=== PATIENT | male | born 1975 | race American Indian/Alaskan Native ===

== ENCOUNTER 2016-08-26 07:44 | Day surgery (SDC) | payer OTHER ==
--- NOTE | 2016-08-26 08:41 | Anesthesia Day of Surgery ---
Anesthesia Day of Surgery - Day of Surgery Patient Examined: Yes Patient H&P Reviewed: Yes Patient is NPO: Yes
--- NOTE | 2016-08-26 08:41 | Anesthesia Consultation ---
Anesthesia Consult and Med Hx Date of service: 08/26/16 - Airway Anesthetic Teeth Evaluation: Good ROM Head & Neck: Adequate Mental/Hyoid Distance: Adequate Mallampati Class: Class II Intubation Access Assessment: Probably Good - Pulmonary Exam CTA: Yes - Cardiac Exam Cardiac Exam: RRR - Pre-Operative Health Status ASA Pre-Surgery Classification: ASA2 Proposed Anesthetic Plan: MAC - Pre-Anesthesia Comment Pre-Anesthesia Comments: Back injury in [place]. Pt has TENS. - Pulmonary Hx Smoking: No (VAPES)
[2016-08-26] MEDS: DILAUDID IV PRN ×4 (08:53→10:21)
[2016-08-26] MEDS ORDERED: NACL 0.9% 1000 ML 1,000 ML IV SCH (09:00)
[2016-08-26] MEDS ORDERED: DIPRIVAN 10 MG/ML IV ONE ×2 (09:30)
--- NOTE | 2016-08-26 09:46 | Progress Note ---
Assessment and Plan - Patient Problems (1) Epigastric abdominal pain Current Visit: Yes Status: Acute Plan to address problem: Will discuss CT scan, UGI/SBF with patient. (2) Gastroparesis Current Visit: Yes Status: Acute Plan to address problem: Will discuss CT scan, UGI/SBF with patient. Subjective Date of service: 08/26/16 Principal diagnosis: Epigastric abdominal pain Interval history: 41 year old with ongoing epigastric abdominal pain, not responding to pantoprazole plus a second medication from his primary MD. He had received a dose of Dilaudid this morning prior to my arrival. Objective - Constitutional Vitals: Vital Signs - 12hr 08/26/16 08/26/16 09:00 09:05 Temperature 97.8 F 97.8 F Pulse Rate 65 65 Respiratory 12 12 Rate Blood Pressure 126/74 126/74 O2 Sat by Pulse 98 98 Oximetry General appearance: Present: no acute distress ((had received Dilaudid)) - EENT Eyes: PERRL, EOM intact, no scleral icterus ENT: hearing intact - Neck Neck: supple - Respiratory Respiratory effort: normal Respiratory: bilateral: CTA - Cardiovascular Rhythm: regular Heart Sounds: Present: S1 & S2 - Gastrointestinal General gastrointestinal: Present: soft, non-tender, non-distended, normal bowel sounds, other (rounded, mildly obese). 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 Retained gastric content, no other obvious abnormalities.)
--- NOTE | 2016-08-26 09:52 | Short Stay Summary ---
Short Stay Documentation Date of service: 08/26/16 Narrative H&P: 41 year old with ongoing epigastric abdominal pain not responsive to pantoprazole plus a second medication prescribed by his primary MD. He had received a dose of Dilaudid in pre-op prior to my arrival to see him this morning. - History H&P: obtained from office Past Medical History: other (traumatic brain injury, anxiety, depression, migraine) Past Surgical History: Other (hernia repair) Social history: other (fiancee) - Allergies and Medications Current Medications: Allergies No Known Allergies Allergy (Verified 08/26/16 08:40) Home Medications Medication Instructions Recorded Confirmed Last Taken Type Dicyclomine 20 mg PO QID 08/26/16 08/26/16 08/25/[address] 1,000 mg PO DAILY 08/26/16 08/26/16 08/25/16 History Pantoprazole 40 mg PO BID 08/26/16 08/26/16 08/25/16 History RisperDAL 1 mg PO BID 08/26/16 08/26/16 08/25/16 History Sucralfate 1 gm PO QID 08/26/16 08/26/16 08/25/16 History Active Medications Hydromorphone HCl (Dilaudid) 0.5 mg IV Q10MIN PRN PRN Reason: Pain , Severe (7-10) in PACU Stop: 08/26/16 12:00 Last Admin: 08/26/16 09:14 Dose: 0.5 mg Sodium Chloride (Nacl 0.9% 1000 Ml) 1,000 mls @ 50 mls/hr IV DIRECT ASA Last Admin: 08/26/16 08:46 Dose: 50 mls/hr - Physical exam General appearance: no acute distress ((had received Dilaudid)), well-nourished Integumentary: no rash HEENT: PERRLA, EOMI Lungs: Clear to auscultation Heart: Regular rate, Normal S1, Normal S2 Gastrointestinal: normal (soft, nontender, nondistended, nontympanic, rounded, mildly obese), no tenderness, no distended, no organomegaly, no hepatomegaly, no splenomegaly, no abdominal bruit, obese, no pulsatile mass, no pulsatile liver Neurological: Other (memory deficits - per patient due to traumatic brain injury ) - Hospital course Hospital course: Uneventful EGD, retained gastric content, see report. - Disposition Condition at discharge: Good Disposition: DC-01 TO HOME OR SELFCARE - Discharge Diagnoses (1) Epigastric abdominal pain Status: Chronic Comment: Will discuss obtaining CT, UGI/SBF. (2) Gastroparesis Status: Chronic Comment: Will discuss obtaining CT, UGI/SBF. Short Stay Discharge Plan Activity: other (no driving today) Diet: regular, low fat Additional Instructions: Patient to call to schedule CT, UGI/SBF. Follow up with: BHUPINDER AVILA MD [Primary Care Provider] - 7 Days
--- NOTE | 2016-08-26 10:04 | Operative Report ---
Operative Report Operative Report: Date: 08/26/2016 Procedure: Esophagogastroduodenoscopy Endoscopist: Antwon Feliz M.D. Preprocedure diagnosis: Epigastric abdominal pain Postprocedure diagnosis: Retained gastric content consistent with gastroparesis Medication: Monitored anesthesia care Complication: None Estimated blood loss: None Procedure: See the endoscopy lab outpatient record for details regarding history , physical, medications, allergies etc. The indications, techniques, potential complications and alternatives, had been discussed in detail with the patient prior to the day of exam, were reviewed again with him on the day of the exam. His questions were encouraged and answered, and he granted consent for this procedure. He was sedated by anesthesia services. The tip of a [employer] video panendoscope was passed easily through the pharynx and into the esophagus which appeared normal throughout its entire length. The instrument was advanced into the stomach and air was insufflated. There was a small but significant amount of semisolid retained content in the fundus. The visible mucosa appeared normal. The instrument was cautiously advanced further into the stomach was minimal air insufflation. All visible gastric mucosa was intact. The pylorus was patent. A a small amount of retained content was noted to be refluxing into the stomach from the duodenum. No pathology was seen in the duodenal bulb or upper portion of the second portion of the duodenum. The instrument was retroflexed revealing no pathology involving the lesser curvature, cardia, or visible portions of fundus. The endoscope was straightened and withdrawn. The procedure was very well-tolerated. Postprocedure he was observed in the recovery area of the GI lab to ensure stability prior to his release. See the outpatient record for details regarding instructions to patient, medications and plans for follow-up. Endoscopic assessment: 1. Retained gastric content with patent pylorus consistent with gastroparesis, cannot rule out more distal obstructive process. 2. Otherwise grossly normal upper endoscopy. Antwon Feliz M.D. Dictated 08/26/2016 at 9:58 AM
--- NOTE | 2016-08-26 10:23 | Post Anesthesia Evaluation ---
- Post Anesthesia Evaluation Patient Participated: Yes Airway Patent: Yes Stable Respiratory Function: Yes Temp > 96.8F: Yes Pain Manageable: Yes Adequeate Hydration: Yes Anesthesia Complications: No Block Receding Appropriately: Not Applicable
[2016-08-26 10:45] VITALS: BP 142/82
== END 2016-08-26 07:45 | disposition home or self-care (01) ==
LOC: GIO 07:44
PROVIDERS: ATTEND Internal Medicine Gastroenterology
DX: K31.84 Gastroparesis (principal); K56.60 Unspecified intestinal obstruction; K21.9 Gastro-esophageal reflux disease without esophagitis; F41.9 Anxiety disorder, unspecified; F32.9 Major depressive disorder, single episode, unspecified; G43.909 Migraine, unspecified, not intractable, without status migrainosus; Z98.890 Other specified postprocedural states; Z79.899 Other long term (current) drug therapy
CPT/HCPCS: 43235; 96374; 96375; J1170; J2704; J7030

== ENCOUNTER 2016-09-04 08:56 | Outpatient (CLI) | payer OTHER ==
--- NOTE | 2016-09-04 14:26 | Fluoroscopy Report ---
UGI AND SMALL BOWEL FOLLOW THROUGH INDICATION: Epigastric, RUQ pain, vomiting. Gallstones found last week on ultrasound. COMPARISON: None similar at this institution. FINDINGS: Upper GI and small bowel follow-through performed. Patient swallowed thick and thin barium without any difficulty and tolerated effervescent granules well. Building Coordinator radiograph demonstrates nonobstructive bowel gas pattern. Ascending colon stool. Femoral head spurring/bony prominence along the articular surfaces laterally noted with increased propensity for femoral acetabular impingement not entirely excluded. Esophagus is normal in course and caliber. Normal peristalsis and mucosal pattern. Mild gastroesophageal reflux noted extending up to mid esophagus as on image 9. No significant hiatal hernia. Normal gastric contours without evidence of peptic ulcer disease. Normal duodenal bulb and appearance of the C-loop as well. Serial overhead abdominal radiographs suggest a small bowel transient time of approximately 2 hour and 15 minutes. Spot radiographs demonstrate no suspicious filling defect, mass, angulation or tethering. Normal terminal ileum. Opacified appendix incidentally noted. CONCLUSION: Mild gastroesophageal reflux; otherwise unremarkable upper GI and small bowel follow-through, as described. Thank you for the opportunity to participate in this patient's care.
== END 2016-09-04 08:57 | disposition home or self-care (01) ==
LOC: FLUORO 08:56
PROVIDERS: ATTEND Internal Medicine Gastroenterology
DX: K31.84 Gastroparesis (principal); K76.9 Liver disease, unspecified; K21.9 Gastro-esophageal reflux disease without esophagitis; K80.20 Calculus of gallbladder without cholecystitis without obstruction; Z87.891 Personal history of nicotine dependence
CPT/HCPCS: 74249

== ENCOUNTER 2016-11-29 11:58 | Day surgery (SDC) | payer OTHER ==
[~2016-11-29 11:58] MED LIST: ANCEF/STERILE WATER 2 GM/20 ML IV NR; HEPARIN SUB-Q NR; NACL 0.9% 1000 ML 1,000 ML IV SCH; PEPCID PO NR
[2016-11-29] MEDS ORDERED: DIPRIVAN 10 MG/ML IV ONE (12:22)
[2016-11-29] MEDS ORDERED: SUBLIMAZE ONE (12:22)
[2016-11-29] MEDS ORDERED: XYLOCAINE MPF 2% ONE (12:23)
[2016-11-29] MEDS ORDERED: ZEMURON IV ONE (12:23)
[2016-11-29] MEDS: VERSED IV NR ×2 (12:56→13:03)
--- NOTE | 2016-11-29 13:49 | Anesthesia Consultation ---
Anesthesia Consult and Med Hx Date of service: 11/29/16 - Airway Anesthetic Teeth Evaluation: Good ROM Head & Neck: Adequate Mental/Hyoid Distance: Adequate Mallampati Class: Class II Intubation Access Assessment: Probably Good - Pulmonary Exam CTA: Yes - Cardiac Exam Cardiac Exam: RRR - Pre-Operative Health Status ASA Pre-Surgery Classification: ASA2 Proposed Anesthetic Plan: General - Pulmonary Hx Smoking: Yes (stop 2 years ago, SMOKES VAPE NOW) - Cardiovascular System Hx Hypertension: No - Central Nervous System Hx Back Pain: Yes Hx Psychiatric Problems: Yes - Gastrointestinal Hx Gastroesophageal Reflux Disease: Yes - Endocrine Hx Renal Disease: No Hx Non-Insulin Dependent Diabetes: No Hx Hypothyroidism: No - Other Systems Hx Alcohol Use: No Hx Substance Use: No Hx Cancer: No Hx Obesity: Yes
--- NOTE | 2016-11-29 13:49 | Anesthesia Day of Surgery ---
Anesthesia Day of Surgery - Day of Surgery Patient Examined: Yes Patient H&P Reviewed: Yes Patient is NPO: Yes
[2016-11-29] MEDS ORDERED: VERSED ONE (13:59)
[2016-11-29] MEDS ORDERED: MARCAINE 0.25% INFILTRATI ONE (14:00)
[2016-11-29] MEDS ORDERED: DILAUDID ONE (14:15)
[2016-11-29] MEDS ORDERED: NACL 0.9% 1000 ML 1,000 ML ONE (14:19)
[2016-11-29] MEDS ORDERED: NACL 0.9% 1000 ML IV ONE (14:20)
[2016-11-29] MEDS ORDERED: MARCAINE 0.5% INFILTRATI ONE (14:20)
[2016-11-29] MEDS ORDERED: NACL 0.9% IR ONE ×2 (14:20)
[2016-11-29] MEDS ORDERED: OMNIPAQUE 300 MG/50 ML (CATH LAB) IV ONE (14:20)
[2016-11-29] MEDS ORDERED: BREVIBLOC IV ONE (14:28)
[2016-11-29] MEDS ORDERED: DECADRON ONE ×2 (14:32)
[2016-11-29] MEDS ORDERED: NEOSTIGMINE ONE (15:29)
[2016-11-29] MEDS ORDERED: ROBINUL ONE ×2 (15:29)
[2016-11-29] MEDS ORDERED: TORADOL ONE (15:30)
--- NOTE | 2016-11-29 15:40 | Short Stay Summary ---
Short Stay Documentation Date of service: 11/29/16 - History H&P: obtained from office - Allergies and Medications Current Medications: Allergies No Known Allergies Allergy (Verified 11/22/16 15:29) Home Medications Medication Instructions Recorded Confirmed Last Taken Type Dicyclomine 20 mg PO QID 08/26/16 11/22/16 11/26/[address] 1,000 mg PO DAILY 08/26/16 11/22/16 11/26/16 History Pantoprazole 40 mg PO BID 08/26/16 11/22/16 11/26/16 History RisperDAL 1 mg PO BID 08/26/16 11/22/16 11/26/16 History Sucralfate 1 gm PO QID 08/26/16 11/22/16 11/26/16 History Morphine [Morphine TAB] 15 mg PO PRN PRN 11/22/16 11/22/16 Unknown History Active Medications Cefazolin Sodium (Ancef/Sterile Water 2 Gm/20 Ml) 2 gm IV PREOP NR Stop: 11/29/16 23:59 Famotidine (Pepcid) 20 mg PO PREOP NR Stop: 11/29/16 23:59 Last Admin: 11/29/16 12:48 Dose: 20 mg Heparin Sodium (Porcine) (Heparin) 5,000 unit SUB-Q PREOP NR Stop: 11/29/16 23:59 Last Admin: 11/29/16 12:59 Dose: 5,000 unit Sodium Chloride (Nacl 0.9% 1000 Ml) 1,000 mls @ 75 mls/hr IV DIRECT ASA Last Admin: 11/29/16 12:55 Dose: 75 mls/hr Midazolam HCl (Versed) 2 mg IV PREOP NR Stop: 11/29/16 23:59 Last Admin: 11/29/16 13:03 Dose: 2 mg - Brief post op/procedure progress note Date of procedure: 11/29/16 Pre-op diagnosis: Biliary colic Post-op diagnosis: other (Chronic cholecystitis) Procedure: Laparoscopic cholecystectomy Anesthesia: GETA, local Surgeon: FABIAN CARLOS Clerical Manager: SANTOS VALERA Estimated blood loss: 50-100ml Pathology: list (Gallbladder) Specimen disposition: to lab Condition: stable - Disposition Condition at discharge: Good Disposition: DC- TO HOME OR SELFCARE Short Stay Discharge Plan Activity: no restrictions Diet: regular Wound: remove dressing (12/01/16, and then may shower) Follow up with: FABIAN CARLOS MD [Staff Physician] - 7 Days Prescriptions: oxyCODONE /ACETAMINOPHEN [Percocet 5/325] 1 - 2 tab PO Q4HR PRN #30 tab PRN Reason: Pain Promethazine [Phenergan TAB] 25 mg PO Q6HR PRN #10 tab PRN Reason: Nausea
[2016-11-29] MEDS ORDERED: PERCOCET 5/325 PO PRN (15:56)
[2016-11-29] MEDS ORDERED: DILAUDID IV PRN (16:00)
[2016-11-29] MEDS: DILAUDID IV PRN ×2 (16:10→16:40)
[2016-11-29] MEDS ORDERED: DEMEROL ONE (16:10)
[2016-11-29] MEDS ORDERED: DEMEROL IV PRN (16:12)
--- NOTE | 2016-11-29 16:34 | Post Anesthesia Evaluation ---
- Post Anesthesia Evaluation Patient Participated: Yes Airway Patent: Yes Stable Respiratory Function: Yes Nausea/Vomiting: No Temp > 96.8F: Yes Pain Manageable: Yes Adequeate Hydration: Yes Anesthesia Complications: No Block Receding Appropriately: Not Applicable Patient on Ventilator: No
--- NOTE | 2016-11-29 16:40 | Operative Report ---
PREOPERATIVE DIAGNOSIS: Biliary colic. POSTOPERATIVE DIAGNOSIS: Chronic cholecystitis. PROCEDURE: Laparoscopic cholecystectomy. SURGEON: Vasquez Burgos MD. GOLD RECLAIMER: Dr. Jorge MD. ANESTHESIA: General and local. ESTIMATED BLOOD LOSS: Minimal. SPECIMEN: Gallbladder. IMPLANTS: None. DRAINS: None. FINDINGS: A chronically inflamed gallbladder. COMPLICATIONS: None. INDICATIONS: This is a 41-year-old gentleman who has symptomatic biliary disease with gallstones, who also had a history of mild elevation of his total bilirubin to 1.9. He presents now for laparoscopic cholecystectomy and intraoperative cholangiogram. OPERATIVE COURSE: The patient was brought to the operating room, identified, and placed in the supine position. General anesthesia was achieved. His abdomen was prepped and draped in usual manner. Prior to all incisions, the area was infiltrated with 0.25% Marcaine. An infraumbilical 5 mm incision was made using a Veress needle technique. The abdomen was insufflated to 15 mmHg pressure. A 5 mm trocar was inserted using a 30-degree 5-mm telescope. The other trocars were placed under direct vision, which included a 10 mm epigastric port and two 5 mm right lateral ports. The gallbladder was grasped and elevated, it was found to be markedly thickened and fibrotic consistent with chronic cholecystitis. The base was extremely scarred in. With a lot of very meticulous dissection we were able to eventually identify the cystic duct. The artery was also identified and clipped proximally and distally and transected. The duct was so scarred and wide, in short, I did not feel comfortable proceeding with cholangiogram because that might risk shortening when I have to ligate, and I was going to have to ligate this duct with an Endoloop because of its size; therefore, I simply transected the duct and then using an Endoloop, I ligated the duct with care being taken not to injure the common bile and common hepatic ducts. The gallbladder was then removed from the liver bed using electrocautery. It was placed in an EndoCatch bag and delivered through the epigastric port site, which had to be enlarged in order to get this very thick walled stone filled gallbladder out. Once it was out, we reexamined the liver, found to be hemostatic. The Endoloop and clips were in good position. No signs of injury to anything. The abdomen was irrigated, the fluid was removed. I then removed all the ports and closed the fascia in the epigastric port site with an 0 Vicryl using a suture passer. All the other ports were closed at the skin level using a 4-0 Vicryl suture, Steri-Strips, and bandage. He tolerated the procedure well without complications. JOB# [id number] BSM/[id number]
[2016-11-29 21:11] VITALS: BP 136/80
== END 2016-11-29 18:10 | disposition home or self-care (01) ==
LOC: OR 11:58
PROVIDERS: ATTEND Surgery
DX: K80.10 Calculus of gallbladder with chronic cholecystitis without obstruction (principal); F43.10 Post-traumatic stress disorder, unspecified; Z98.890 Other specified postprocedural states; F17.210 Nicotine dependence, cigarettes, uncomplicated; K21.9 Gastro-esophageal reflux disease without esophagitis
CPT/HCPCS: 47562; 88304; A4217; J0690; J1100; J1170; J1644; J1885; J2175; J2250; J2704; J2710; J3010; J7030; Q9967